=== PATIENT | male | born 1995 | race Caucasian/White ===

== ENCOUNTER 2023-06-22 10:46 | Emergency (ER) | payer SELFPAY ==
[~2023-06-22] VITALS: Ht 170.2 cm; Wt 64.0 kg
[2023-06-22 10:48] VITALS: O2SAT 98
[2023-06-22 11:27] VITALS: BP 123/70; PULSE 80; RESP 18; TEMP 98.4
== END 2023-06-22 12:29 | disposition home or self-care (01) ==
LOC: ER 12:04
DX: G40.909 Epilepsy, unspecified, not intractable, without status epilepticus (principal)
CPT/HCPCS: 99283